=== PATIENT | female | born 1990 | race Caucasian/White ===

== ENCOUNTER 2016-12-09 09:37 | Emergency (ER) | payer OTHER ==
[2016-12-09 09:43] VITALS: BMI 26.6
--- NOTE | 2016-12-09 10:18 | PDOC ---
History of Present Illness - General Chief Complaint: Injury Stated Complaint: FALL/ NAUSEA, DIZZY Time Seen by Provider: 12/09/16 09:46 History Source: Patient Exam Limitations: No Limitations - History of Present Illness Initial Comments: 12/09/16 10:03 26-year-old female presents the ED with complaints of headache, and nausea, neck stiffness or back pain after falling a few days ago. Patient was walking when she had tripped causing her to land on the left side of her body striking her head on the pavement. Patient had no LOC and was able to get up immediately but as the day went on symptoms began. Patient has not taking anything for discomfort and decided come to the ER for further evaluation. Patient is currently on no anticoagulation therapy including aspirin. Patient denies visual changes, chest pain, shortness of breath, or abdominal pain. Timing/Duration: other (3 days ago) Severity: moderate Associated Symptoms: reports: headaches, nausea/vomiting Past History - Past Medical History Allergies/Adverse Reactions: Allergies Allergy/AdvReac Type Severity Reaction Status Date / Time No Known Allergies Allergy Verified 05/04/13 08:22 Home Medications: Ambulatory Orders Cyclobenzaprine HCl [Flexeril 10 mg] 10 mg PO BID PRN #8 tablet 12/09/16 Ibuprofen [Motrin -] 600 mg PO TID PRN #21 tablet 12/09/16 Asthma: No Cancer: No Cardiac Disorders: No Diabetes: No HTN: No Seizures: No Thyroid Disease: No - Surgical History Appendectomy: Yes - Reproductive History LMP Normal: Yes Is Patient Now?: No - Psycho/Social/Smoking Cessation Hx Anxiety: No Suicidal Ideation: No Smoking History: Never smoked Have you smoked in the past 12 months: No Information on smoking cessation initiated: No Hx Alcohol Use: No Drug/Substance Use Hx: No Substance Use Type: None Hx Substance Use Treatment: No Patient Lives Alone: No Lives with/in: spouse/SO Review of Systems - Review of Systems Able to Perform ROS?: Yes Constitutional: No: Symptoms Reported HEENTM: No: Symptoms Reported Respiratory: No: Symptoms reported Cardiac (ROS): No: Symptoms Reported ABD/GI: Yes: Nausea : No: Symptoms Reported Musculoskeletal: Yes: Back Pain, Neck Pain Integumentary: No: Symptoms Reported Neurological: Yes: Headache Endocrine: No: Symptoms Reported Hematologic/Lymphatic: No: Symptoms Reported *Physical Exam - Vital Signs Last Vital Signs Temp Pulse Resp BP Pulse Ox 97.9 F 67 18 111/61 100 12/09/16 09:40 12/09/16 09:40 12/09/16 09:40 12/09/16 09:40 12/09/16 09:40 - Physical Exam General Appearance: Yes: Nourished, Appropriately Dressed. No: Apparent Distress HEENT: negative: Pale Conjunctivae Neck: positive: Tender (left sternoclavicular muscle), Supple. negative: Tender midline Respiratory/Chest: positive: Lungs Clear, Normal Breath Sounds. negative: Chest Tender, Respiratory Distress, Accessory Muscle Use Cardiovascular: positive: Regular Rhythm, Regular Rate. negative: Murmur Gastrointestinal/Abdominal: positive: Soft. negative: Tenderness Musculoskeletal: positive: Vertebral Tenderness (t5-T6) Extremity: positive: Normal Capillary Refill, Normal Range of Motion. negative : Tender Integumentary: positive: Normal Color, Warm, Moist Neurologic: positive: Motor Strength 5/5 (ambulatory) ED Treatment Course - LABORATORY CBC & Chemistry Diagram: 12/09/16 11:30 12/09/16 11:30 - RADIOLOGY Radiology Studies Ordered: Category Date Time Status HEAD CT WITHOUT CONTRAST [CT] Stat CT Scan 12/09/16 10:02 Ordered Medical Decision Making - Medical Decision Making 12/09/16 10:18 Patient status post mechanical fall 3 days ago now complaining of headache, nausea, back pain and neck pain patient on exam had tenderness to c 5 and C6 along with a left sternal clavicular muscle. Secondary to complaints, patient ordered for head CT, labs, and muscle relaxants. 12/09/16 12:26 Laboratory Tests 12/09/16 12/09/16 12/09/16 10:13 11:30 11:30 WBC 5.9 D Hgb 12.8 D Hct 37.7 D Plt Count 230 D Neutrophils % 57.0 D Sodium 141 Potassium 4.2 Chloride 106 Carbon Dioxide 27 Anion Gap 8 BUN 8 D Creatinine 0.5 L Creat Clearance w eGFR > 60 Random Glucose 87 Calcium 9.0 AST 11 L D ALT 21 D Urine Ketones Negative Urine Nitrite Negative Ur Leukocyte Esterase Negative Urine HCG, Qual Negative 12/09/16 12:[address] shows no acute intracranial pathology. Patient states feeling better after receiving the medication. Patient xray of her thoracic spine pending. 12/09/16 13:12 X-ray of the thoracic spine negative for acute findings. Patient will be discharged home with muscle relaxants pain meds, and recommendations to follow post concussive syndrome instructions. *DC/Admit/Observation/Transfer Diagnosis at time of Disposition: Post concussive syndrome Neck muscle strain Qualifiers: Encounter type: initial encounter Qualified Code(s): S16.1XXA - Strain of muscle, fascia and tendon at neck level, initial encounter - Discharge Dispostion Disposition: HOME Condition at time of disposition: Improved - Prescriptions Prescriptions: Cyclobenzaprine HCl [Flexeril 10 mg] 10 mg PO BID PRN #8 tablet PRN Reason: Muscle Spasms Ibuprofen [Motrin -] 600 mg PO TID PRN #21 tablet PRN Reason: Muscle Spasms - Referrals Referrals: Shala Saldana MD [Primary Care Provider] - - Patient Instructions Printed Discharge Instructions: DI for Closed Head Injury, Neck Sprain, DI for Postconcussion Syndrome Additional Instructions: I recommend taking the medication as prescribed for the next 3-4 days and also follow instructions on postconcussive syndrome. That includes no watching TV more than 15 minutes at a time, reading fine print , textng, or using the computer x 1 week. - Post Discharge Activity Work/School Note: Back to Work
[2016-12-09] MEDS ORDERED: CYCLOBENZAPRINE HCL 10 MG TABLET (FP) PO ONE (10:20)
[2016-12-09] MEDS ORDERED: OXYCODONE/APAP 5/325MG COMBO TABLET PO ONE (10:20)
[2016-12-09] MEDS ORDERED: OXYCODONE/APAP 5/325MG COMBO TABLET ONE (10:29)
[2016-12-09] MEDS ORDERED: CYCLOBENZAPRINE HCL 10 MG TABLET (FP) ONE (10:29)
[2016-12-09 10:33] LABS: URINE APPEARANCE CLEAR; URINE BILIRUBIN NEGATIVE (NEGATIVE); URINE BLOOD NEGATIVE (NEGATIVE); URINE COLOR LTYELLOW; URINE GLUCOSE (UA) NEGATIVE (NEGATIVE); URINE KETONE NEGATIVE (NEGATIVE); URINE LEUK ESTERASE NEGATIVE (NEGATIVE); URINE NITRITE NEGATIVE (NEGATIVE); URINE PROTEIN NEGATIVE (NEGATIVE); URINE UROBILINOGEN NEGATIVE E.U./dl (0.2-1.0)
[2016-12-09] MEDS ORDERED: ONDANSETRON *ODT* 4 MG TABLET ONE (11:30)
[2016-12-09 11:49] LABS: BASOPHIL 0.5 % (0-2.0); EOSINOPHIL 2.7 % (0-4.5); MCH 30.2 pg (25.7-33.7); MEAN CELL VOLUME 88.7 fl (80-96); MEAN PLT VOLUME 8.1 fl (7.5-11.1); PLATELET COUNT 230 K/MM3 (134-434); RDW 12.8 % (11.6-15.6); WHITE BLOOD COUNT 5.9 K/mm3 (4.0-10.0)
[2016-12-09 12:13] LABS: ALBUMIN 3.9 g/dl (3.4-5.0); ALK PHOS 81 U/L (45-117); ANION GAP 8 (8-16); BILIRUBIN,TOTAL 0.5 mg/dL (0.2-1.0); CO2 27 mmol/L (21-32); CREATININE 0.5 mg/dL (0.55-1.02); GLUCOSE,RANDOM 87 mg/dL (74-106); SGOT/AST 11 U/L (15-37); SGPT/ALT 21 U/L (12-78); TOT PROT 7.1 g/dl (6.4-8.2)
[2016-12-09 13:37] VITALS: BP 111/67; PULSE 65; TEMP 98.2
== END 2016-12-09 13:38 | disposition home or self-care (01) ==
LOC: JER 09:37
DX: F07.81 Postconcussional syndrome (principal); G44.309 Post-traumatic headache, unspecified, not intractable; S16.1XXA Strain of muscle, fascia and tendon at neck level, initial encounter; W01.0XXA Fall on same level from slipping, tripping and stumbling without subsequent striking against object, initial encounter; Y93.31 Activity, mountain climbing, rock climbing and wall climbing; Y92.480 Sidewalk as the place of occurrence of the external cause; Y99.8 Other external cause status
CPT/HCPCS: 36415; 70450-TC; 72070-TC; 80053; 81003; 84703; 85025; 99283-25

== ENCOUNTER 2018-03-08 18:15 | Emergency (ER) | payer OTHER ==
[2018-03-08 18:45] VITALS: BP 112/65; PULSE 98; TEMP 98.8; BMI 25.3
--- NOTE | 2018-03-08 19:04 | PDOC ---
History of Present Illness - General Chief Complaint: Cold Symptoms Stated Complaint: PAIN Time Seen by Provider: 03/08/18 18:47 History Source: Patient Exam Limitations: No Limitations - History of Present Illness Initial Comments: CHIEF COMPLAINT: 28 y/o afebrile female with no significant PMH c/o sore throat , fever and difficulty swallowing x 4 days. HISTORY OF PRESENT ILLNESS: Patient admits her daughter had strep throat last week. Patient states she's been taking motrin but now her right ear and teeth her. She states she can still swallow her own saliva and is able to drink fluids. Vital signs on arrival are within normal limits. REVIEW OF SYSTEMS: GENERAL/CONSTITUTIONAL: +tactile fever. No weakness. No weight change. HEAD, EYES, EARS, NOSE AND THROAT: +sore throat, right earache and tooth discomfort. CARDIOVASCULAR: No chest pain or shortness of breath. RESPIRATORY: No cough, wheezing, or hemoptysis. GASTROINTESTINAL: No abd pain, nausea, vomiting, diarrhea. GENITOURINARY: No dysuria, frequency, or change in urination. MUSCULOSKELETAL: No joint or muscle swelling or pain. No neck or back pain. SKIN: No rash or easy bruising. NEUROLOGIC: No headache, vertigo, loss of consciousness, or loss of sensation. PHYSICAL EXAM: GENERAL: The patient is awake, alert, and fully oriented, in no acute distress. Hot potato voice HEAD: Normal with no signs of trauma. NECK: Tender anterior cervical lymphadenopathy. ENT: Pupils equal, round and reactive to light, extraocular movements intact, sclera anicteric, conjunctiva clear. Erythematous and edematous tonsils, right worse than left. Uvula slightly deviated to right. Minimal right sided hard palate deformity. LUNGS: Clear to auscultation bilaterally. Normal excursion. No respiratory distress or use of accessory muscles. CV: RRR, S1/S2, no MRG. Cap refill < 2 sec. ABDOMEN: Soft, non-distended, non-tender even to deep palpation, no hepatomegaly or splenomegaly, no masses. EXTREMITIES: Normal range of motion, no edema. NEUROLOGICAL: Normal speech, normal gait. CN II-XII grossly intact. PSYCH: Normal mood, normal affect. SKIN: Warm, dry, normal turgor, no rashes or lesions noted. Past History - Past Medical History Allergies/Adverse Reactions: Allergies Allergy/AdvReac Type Severity Reaction Status Date / Time No Known Allergies Allergy Verified 03/08/18 18:42 Home Medications: Ambulatory Orders NK [No Known Home Medication] 10/26/17 Asthma: No Cancer: No Cardiac Disorders: No COPD: No Diabetes: No HTN: No Seizures: No Thyroid Disease: No Other medical history: DENIES. - Surgical History Appendectomy: Yes - Suicide/Smoking/Psychosocial Hx Smoking History: Never smoked Have you smoked in the past 12 months: No Hx Alcohol Use: No Drug/Substance Use Hx: No Substance Use Type: None Hx Substance Use Treatment: No *Physical Exam - Vital Signs Last Vital Signs Temp Pulse Resp BP Pulse Ox 98.8 F 98 H 19 112/65 99 03/08/18 18:42 03/08/18 18:42 03/08/18 18:42 03/08/18 18:42 03/08/18 18:42 Medical Decision Making - Medical Decision Making A/P: 28 y/o female with strep pharyngitis. Plan is as follows: 1. IM decadron 2. IM Bicillin Patient was instructed to continue taking motrin every 6 hours with food for fever/pain, gargle with warm salt water and eat soft/cold foods. Patient instructed to return to the ER immediately if she cannot swallow her own saliva or if her symptoms worsen as I am concerned with peritonsilar abscess formation. The patient verbalizes understanding of all instructions, has no further questions and is awaiting discharge. *DC/Admit/Observation/Transfer Diagnosis at time of Disposition: Strep throat - Discharge Dispostion Disposition: HOME Condition at time of disposition: Improved - Referrals - Patient Instructions Printed Discharge Instructions: DI for Strep Throat Additional Instructions: Discharge Instructions: -You were treated with IM Bicillin and IM steroids -Please continue taking Motrin for fever -Eat soft/cold food to help with sore throat -Gargle with salt water multiple times per day -Throw away your toothbrush in 3 days and get a new one -Return to the ER immediately with any worsening or concerning symptoms - Post Discharge Activity
[2018-03-08] MEDS ORDERED: DEXAMETHASONE SOD PHOSPHATE 10 MG/1 ML VIAL IM ONE (19:09)
[2018-03-08] MEDS ORDERED: PENICILLIN G BENZATHINE 1,200,000 UNIT/2 ML PFS IM ONE (19:09)
[2018-03-08] MEDS ORDERED: DEXAMETHASONE SOD PHOSPHATE 10 MG/1 ML VIAL ONE (19:12)
[2018-03-08] MEDS ORDERED: PENICILLIN G BENZATHINE 2,400,000 UNIT/4 ML PFS ONE (19:12)
== END 2018-03-08 20:17 | disposition home or self-care (01) ==
LOC: JERFT 18:15
PROC: 3E0233Z Introduction of Anti-inflammatory into Muscle, Percutaneous Approach (ICD-10-PCS; principal; 2018-03-08)
PROC: 3E02329 Introduction of Other Anti-infective into Muscle, Percutaneous Approach (ICD-10-PCS; 2018-03-08)
DX: J02.0 Streptococcal pharyngitis (principal); B95.5 Unspecified streptococcus as the cause of diseases classified elsewhere
CPT/HCPCS: 87070; 87430; 96372; 99281-25; J1100

== ENCOUNTER 2019-09-03 13:26 | Emergency (ER) | payer OTHER ==
[2019-09-03 13:33] VITALS: TEMP 98.2; BMI 27.1
[2019-09-03] MEDS ORDERED: METOCLOPRAMIDE HCL INJECTION 10 MG/2 ML VIAL IVPB ONE (14:07)
[2019-09-03] MEDS ORDERED: LACTATED RINGERS SOLUTION 1000 ML INFUS.BAG IV ONE (14:08)
--- NOTE | 2019-09-03 14:10 | PDOC ---
History of Present Illness - General Chief Complaint: Nausea/Vomiting Stated Complaint: NAUSEA Time Seen by Provider: 09/03/19 13:59 History Source: Patient Exam Limitations: Clinical Condition - History of Present Illness Initial Comments: 09/03/19 14:22 Patient with no significant past medical history present with complaint of 2- day history of nausea, vomiting and diarrhea. Patient reported had epigastric pain when vomited yesterday but however no abdominal pain today. Denies fever, chills by report body aches. Denies sore throat, dizziness, shortness of breath , weakness. Patient has not taken anything for symptoms. Patient also reported for the past few months has been getting anxiety symptoms with shaking in bilateral hands. Patient has not follow-up with primary care for anxiety symptoms. Denies any other symptoms. Denies history of anxiety Is this a multiple visit Asthma Patient?: No Timing/Duration: other (3 days) Past History - Past Medical History Allergies/Adverse Reactions: Allergies Allergy/AdvReac Type Severity Reaction Status Date / Time No Known Allergies Allergy Verified 03/10/18 07:58 Home Medications: Ambulatory Orders Clindamycin [Cleocin -] 450 mg PO Q8H #90 capsule 03/10/18 Methylprednisolone [Medrol Dose Jaxon] 4 mg PO ASDIR #21 tablet 03/10/18 Famotidine [Pepcid -] 40 mg PO DAILY #7 tablet 09/03/19 Mag Hydrox/Aluminum Hyd/Simeth [Maalox Advanced Suspension] 30 ml PO Q8H PRN # 200 ml 09/03/19 Ondansetron [Zofran *Odt*] 4 mg SL Q8H PRN #12 od.tablet 09/03/19 Asthma: No Cancer: No Cardiac Disorders: No COPD: No Diabetes: No HTN: No Seizures: No Thyroid Disease: No - Surgical History Appendectomy: Yes - Immunization History Immunization Up to Date: No - Psycho Social/Smoking Cessation Hx Smoking History: Never smoked Have you smoked in the past 12 months: No Hx Alcohol Use: No Drug/Substance Use Hx: No Substance Use Type: None Hx Substance Use Treatment: No Review of Systems - Review of Systems Able to Perform ROS?: Yes Is the patient limited [place] proficient: No Constitutional: No: Chills, Fever, Malaise HEENTM: No: Symptoms Reported, See HPI, Eye Pain, Blurred Vision, Tearing, Recent change in vision, Double Vision, Cataracts, Ear Pain, Ocular Prothesis, Ear Discharge, Nose Pain, Nose Congestion, Tinnitus, Nose Bleeding, Hearing Loss , Throat Pain, Throat Swelling, Mouth Pain, Dental Problems, Difficulty Swallowing, Mouth Swelling, Other Respiratory: No: Symptoms reported, See HPI, Cough, Orthopnea, Shortness of Breath, SOB with Exertion, SOB at Rest, Stridor, Wheezing, Productive cough, Hemoptysis, Other Cardiac (ROS): No: Symptoms Reported, See HPI, Chest Pain, Edema, Irregular Heart Rate, Lightheadedness, Palpitations, Syncope, Chest Tightness, Other ABD/GI: Yes: Symptoms Reported, See HPI, Diarrhea, Nausea, Vomiting. No: Abd. Pain w/ defecation, Blood Streaked Bowels, Constipated, Difficulty Swallowing, Poor Appetite, Rectal Bleeding, Indigestion, Abdominal cramping : No: Symptoms Reported, Dysuria, Discharge, Frequency, Urgency Musculoskeletal: No: Symptoms Reported Neurological: No: Symptoms reported, Headache, Weakness, Dizziness All Other Systems: Reviewed and Negative *Physical Exam - Vital Signs Last Vital Signs Temp Pulse Resp BP Pulse Ox 98.2 F 86 19 140/74 99 09/03/19 13:29 09/03/19 13:29 09/03/19 13:29 09/03/19 13:29 09/03/19 13:29 - Physical Exam 09/03/19 14:24 GENERAL: Well developed, well nourished. Awake and alert. No acute distress. HEENT: Normocephalic, atraumatic. PERRLA, EOMI. No conjunctival pallor. Sclera are non-icteric. Moist mucous membranes. Oropharynx is clear. NECK: Supple. Full ROM. CARDIOVASCULAR: Regular rate and rhythm. No murmurs, rubs, or gallops. Distal pulses are 2+ and symmetric. PULMONARY: No evidence of respiratory distress. Lungs clear to auscultation bilaterally. No wheezing, rales or rhonchi. ABDOMINAL: Soft. Non-tender. Non-distended. No rebound or guarding. No organomegaly. Normoactive bowel sounds. MUSCULOSKELETAL Normal range of motion at all joints. SKIN: Warm and dry. Normal capillary refill. No rashes. No cyanosis. NEUROLOGICAL: Alert, awake, appropriate. Gait is normal without ataxia. PSYCHIATRIC: Cooperative. Good eye contact. Appropriate mood General Appearance: Yes: Nourished, Appropriately Dressed. No: Apparent Distress HEENT: positive: REA, Normal ENT Inspection, Normal Voice, Pharynx Normal Neck: positive: Supple Respiratory/Chest: positive: Lungs Clear, Normal Breath Sounds. negative: Respiratory Distress, Accessory Muscle Use Cardiovascular: positive: Regular Rhythm, Regular Rate Gastrointestinal/Abdominal: positive: Normal Bowel Sounds, Flat, Soft. negative : Tender, Organomegaly, Guarding, Rebound, Hepatomegaly, Spleenomegaly Musculoskeletal: positive: Normal Inspection. negative: CVA Tenderness Extremity: positive: Normal Inspection Integumentary: positive: Normal Color Neurologic: positive: Fully Oriented, Alert, Normal Mood/Affect, Normal Response ED Treatment Course - LABORATORY CBC & Chemistry Diagram: 09/03/19 14:00 09/03/19 14:00 Medical Decision Making - Medical Decision Making 09/03/19 14:23 Patient with no significant past medical history present with complaint of 2- day history of nausea, vomiting and diarrhea. Patient reported had epigastric pain when vomited yesterday but however no abdominal pain today. Denies fever, chills by report body aches. Denies sore throat, dizziness, shortness of breath , weakness. Patient has not taken anything for symptoms. Patient also reported for the past few months has been getting anxiety symptoms with shaking in bilateral hands. Patient has not follow-up with primary care for anxiety symptoms. Denies any other symptoms. Denies history of anxiety Clinical exam unremarkable. No abdominal tenderness and patient afebrile. Symptoms likely viral gastroenteritis versus less likely bacteria, UA, urine hCG and basic labs CBC and chemistry lab ordered. IV hydration with 1 L normal saline and Pepcid 20 mg IV ordered for gastroenteritis. Treat based on lab results 09/03/19 15:17 CBC and chemistry labs unremarkable. UA wnl. uhcg neg. Patient report improvement in symptoms. Patient stable for outpatient management for viral gastronteritis on pepcid, maalox and zofran with advised to increase fluid intake and PCP f/u Discharge - Discharge Information Problems reviewed: Yes Clinical Impression/Diagnosis: Acute gastroenteritis Diarrhea Qualifiers: Diarrhea type: unspecified type Qualified Code(s): R19.7 - Diarrhea, unspecified Nausea & vomiting Qualifiers: Vomiting type: unspecified Vomiting Intractability: non-intractable Qualified Code(s): R11.2 - Nausea with vomiting, unspecified Condition: Improved Disposition: HOME - Admission No - Additional Discharge Information Prescriptions: Famotidine [Pepcid -] 40 mg PO DAILY #7 tablet Mag Hydrox/Aluminum Hyd/Simeth [Maalox Advanced Suspension] 30 ml PO Q8H PRN # 200 ml PRN Reason: abdominal discomfort Ondansetron [Zofran *Odt*] 4 mg SL Q8H PRN #12 od.tablet PRN Reason: nausea - Follow up/Referral Referrals: [facility] [place] [facility] [Provider Group] - Patient Discharge Instructions Patient Printed Discharge Instructions: DI for Viral Gastroenteritis -- Adult Additional Instructions: your labs are normal. Your symptoms is likely from viral infection. Take prescribed medications as prescribed for symptoms . Follow-up with referred primary care - Post Discharge Activity
[2019-09-03] MEDS ORDERED: METOCLOPRAMIDE HCL INJECTION 10 MG/2 ML VIAL ONE (14:21)
[2019-09-03 14:23] LABS: BASO % 0.5 % (0-2.0); EOS % 2.1 % (0-4.5); HEMATOCRIT 37.7 % (32.4-45.2); HEMOGLOBIN 12.7 GM/dL (10.7-15.3); LYMPH % 29.3 % (8-40); MCH 29.5 pg (25.7-33.7); MCHC 33.6 g/dl (32.0-36.0); MEAN PLT VOLUME 8.3 fl (7.5-11.1); MONO % 6.5 % (3.8-10.2); NEUT % 61.6 % (42.8-82.8); PLATELET COUNT 301 K/MM3 (134-434); RBC 4.29 M/mm3 (3.60-5.2); RDW 14.1 % (11.6-15.6); WHITE BLOOD COUNT 5.1 K/mm3 (4.0-10.0)
[2019-09-03 14:27] LABS: PH,URINE 6.5 (5.0-8.0); URINE APPEARANCE CLEAR; URINE BILIRUBIN NEGATIVE (NEGATIVE); URINE COLOR YELLOW; URINE GLUCOSE (UA) NEGATIVE (NEGATIVE); URINE KETONE NEGATIVE (NEGATIVE); URINE LEUK ESTERASE NEGATIVE (NEGATIVE); URINE NITRITE NEGATIVE (NEGATIVE); URINE PROTEIN NEGATIVE (NEGATIVE); URINE UROBILINOGEN 0.2 mg/dL (0.2-1.0)
[2019-09-03 14:51] LABS: ALBUMIN 4.3 g/dl (3.4-5.0); BILIRUBIN,TOTAL 0.6 mg/dL (0.2-1); BLOOD UREA NITROGEN 7.9 mg/dL (7-18); CALCIUM 9.2 mg/dL (8.5-10.1); CREATININE 0.7 mg/dL (0.55-1.3); POTASSIUM 3.4 mmol/L (3.5-5.1)
[2019-09-03 15:58] VITALS: BP 97/67; PULSE 80
== END 2019-09-03 15:59 | disposition home or self-care (01) ==
LOC: JER 13:26
PROC: 3E033GC Introduction of Other Therapeutic Substance into Peripheral Vein, Percutaneous Approach (ICD-10-PCS; principal; 2019-09-03)
DX: K52.9 Noninfective gastroenteritis and colitis, unspecified (principal)
CPT/HCPCS: 36415; 80053; 81003; 83690; 84443; 84703; 85025; 87086; 96374; 99283-25

== ENCOUNTER 2020-11-10 15:21 | Emergency (ER) | payer OTHER ==
[2020-11-10 15:30] VITALS: BMI 25.0
[2020-11-10 17:47] VITALS: BP 123/72; PULSE 89; TEMP 98.1
== END 2020-11-10 17:45 | disposition home or self-care (01) ==
LOC: JER 15:21
DX: R22.0 Localized swelling, mass and lump, head (principal)
CPT/HCPCS: 70450-TC; 84703; 99284-25

== ENCOUNTER 2022-05-07 19:35 | Emergency (ER) | payer OTHER ==
[2022-05-07 19:43] VITALS: BP 120/86; PULSE 115; RESP 17; TEMP 98.9; BMI 27.4
[2022-05-07] MEDS ORDERED: ACETAMINOPHEN 325 MG TABLET (FP) PO ONE (20:56)
[2022-05-07 20:57] LABS: EPI CELLS 24 /uL (0-25.1); HYALINE CASTS 0 /uL (0-3.1); PH,URINE 6.5 (5.0-8.0); URINE APPEARANCE CLEAR; URINE BACTERIA 537 /uL (0-1359); URINE BILIRUBIN NEGATIVE (NEGATIVE); URINE COLOR YELLOW; URINE GLUCOSE (UA) NEGATIVE (NEGATIVE); URINE KETONE 1+ (NEGATIVE); URINE LEUK ESTERASE TRACE (NEGATIVE); URINE NITRITE NEGATIVE (NEGATIVE); URINE PROTEIN NEGATIVE (NEGATIVE); URINE RBC 3 /uL (0-23.9); URINE UROBILINOGEN 0.2 mg/dL (0.2-1.0); URINE WBC 13 /uL (0-25.8)
[2022-05-07 20:58] LABS: HCG,QUALITATIVE URINE Negative
[2022-05-07] MEDS ORDERED: ACETAMINOPHEN 325 MG TABLET (FP) ONE (21:19)
[2022-05-07] MEDS ORDERED: CEPHALEXIN MONOHYDRATE 500 MG CAPSULE (UD) PO ONE (21:32)
[2022-05-07] MEDS ORDERED: CEPHALEXIN MONOHYDRATE 500 MG CAPSULE (UD) ONE (21:47)
== END 2022-05-07 22:41 | disposition home or self-care (01) ==
LOC: JER 19:35
DX: R30.0 Dysuria (principal); R10.31 Right lower quadrant pain; N39.0 Urinary tract infection, site not specified
CPT/HCPCS: 76856-TC; 81003; 84703; 99284-25

== ENCOUNTER 2024-01-20 08:41 | Emergency (ER) | payer OTHER ==
[2024-01-20 08:47] VITALS: BP 118/78; PULSE 89; RESP 18; TEMP 98.4; BMI 28.9
[2024-01-20] MEDS ORDERED: DIPHTH,PERTUSS(ACELL),TET 0.5 ML DISP.SYRIN IM ONE (10:45)
[2024-01-20] MEDS ORDERED: TETRACAINE 0.5% OPHTH SOLN 2 ML BOTTLE ONE (11:09)
== END 2024-01-20 11:16 | disposition home or self-care (01) ==
LOC: JERFT 08:41
DX: S61.210A Laceration without foreign body of right index finger without damage to nail, initial encounter (principal); W26.8XXA Contact with other sharp object(s), not elsewhere classified, initial encounter
CPT/HCPCS: 99283-25